=== PATIENT | female | born 1985 | race Caucasian/White ===

== ENCOUNTER 2019-02-05 19:34 | Emergency (ER) | payer OTHER ==
[2019-02-05 19:55] VITALS: BP 102/65
--- NOTE | 2019-02-05 20:12 | UC ---
Back Pain HPI - HPI Summary HPI Summary: pt went hiking over the weekend and was sore after. she carried her daughter on her R side during some of that hike. now, she has R low back pain that sometimes radiates up the R side of her back. she also gets pain from her R buttock into the leg which is like her prior hx of sciatica during a . she took some tylenol and then a single dose of naproxen earlier today. - History of Current Complaint Chief Complaint: UCBackPain Stated Complaint: LOW BACK PAIN Time Seen by Provider: 02/05/19 20:05 Hx Obtained From: Patient Hx Last Menstrual Period: unknown pt has IUD ?: No Pain Intensity: 6 Character: Spasmodic Aggravating Factor(s): Movement Associated Signs And Symptoms: Positive: Other - no saddle anesthesia. Negative : Fever, Weakness, Numbness, Abdominal Pain, Flank Pain, Bladder Incontinence, Bowel Incontinence - Risk Factors AAA Risk Factors: Negative Cauda Equina Risk Factors: Negative Epidural Abscess Risk Factors: Negative - Allergies/Home Medications Allergies/Adverse Reactions: Allergies Allergy/AdvReac Type Severity Reaction Status Date / Time No Known Allergies Allergy Verified 02/05/19 19:55 Home Medications: Home Medications Acetaminophen [Tylenol Extra Strength] 2 tab PO ONCE 02/05/19 [History Confirmed 02/05/19] Cetirizine* [ZyrTEC 10 MG TAB*] 1 tab PO DAILY PRN 02/05/19 [History Confirmed 02/05/19] PMH/Surg Hx/FS Hx/Imm Hx Previously Healthy: Yes - Surgical History Surgical History: Yes Surgery Procedure, Year, and Place: lithotripsy - Family History Known Family History: Positive: Non-Contributory - Social History Occupation: Employed Full-time Alcohol Use: Occasionally Substance Use Type: None Smoking Status (MU): Former Smoker When Did the Patient Quit Smoking/Using Tobacco: 2011 Review of Systems All Other Systems Reviewed And Are Negative: No Constitutional: Negative: Fever, Chills Gastrointestinal: Negative: Abdominal Pain Musculoskeletal: Positive: Decreased ROM - low back Neurological: Positive: Paresthesia - RLE. Negative: Weakness, Numbness Physical Exam Triage Information Reviewed: Yes Appearance: Pain Distress - holding R low back Vital Signs: Initial Vital Signs Temp 97 F 02/05/19 19:51 Pulse 66 02/05/19 19:51 Resp 16 07/15/19 19:51 BP 102/65 02/05/19 19:51 Pulse Ox 100 02/05/19 19:51 Vital Signs Reviewed: Yes Eyes: Positive: Conjunctiva Clear Neck: Positive: Supple Respiratory: Positive: Lungs clear, Normal breath sounds Cardiovascular: Positive: RRR Abdomen Description: Positive: Nontender, No Organomegaly, Soft. Negative: CVA Tenderness (R), CVA Tenderness (L) Bowel Sounds: Positive: Present Musculoskeletal: Positive: Other: - C-spine/thoracic spine without deformity or tenderness. Lumbar spine has loss of lordosis and mm spasm R low back. ROM in back is decreased due to spasm. + straight leg raise on R, L is negative. no saddle anesthesia. 5/5 strenght, 2+ reflexes and sensation intact x4. slow but steady gait. R sciatic notch tenderness. Neurological: Positive: Alert Psychological: Positive: Age Appropriate Behavior Skin Exam: Normal Skin: Negative: Rashes Back Pain Course/Dx - Differential Dx/Diagnosis Differential Diagnosis/HQI/PQRI: Other - no concern for infection, acute abdomen or cauda equina. Provider Diagnosis: Back pain, Sciatica Discharge - Sign-Out/Discharge Documenting (check all that apply): Patient Departure All imaging exams completed and their final reports reviewed: No Studies - Discharge Plan Condition: Stable Disposition: HOME Prescriptions: Cyclobenzaprine TAB* [Flexeril 10 MG TAB*] 10 mg PO TID PRN #10 tab PRN Reason: Pain - Back Naproxen [Naprosyn 500 mg tab] 500 mg PO BID 5 Days #10 tablet Patient Education Materials: Sciatica (ED), Acute Low Back Pain (ED) Forms: *Work Release Referrals: Caroline Pitts MD [Primary Care Provider] - 5 Days Additional Instructions: START THE NAPROXEN IN AM - Billing Disposition and Condition Condition: STABLE Disposition: Home
[2019-02-05] MEDS ORDERED: Cyclobenzaprine TAB* 10 MG PO ONE (20:38)
[2019-02-05] MEDS ORDERED: Ketorolac *IM* INJ* 60 MG/2 ML VIAL IM ONE (20:38)
== END 2019-02-05 21:18 | disposition home or self-care (01) ==
LOC: UCCORT 19:34
DX: M54.40 Lumbago with sciatica, unspecified side (principal); Z87.891 Personal history of nicotine dependence
CPT/HCPCS: 96372; 99212; A9270-GY; G0463; J1885